=== PATIENT | female | born 1960 | race Caucasian/White ===

== ENCOUNTER 2017-01-11 12:22 | Emergency (ER) | payer OTHER ==
[2017-01-11 13:56] LABS: HEMOGLOBIN 11.7 gm/dl (12.3-15.3); RED BLOOD COUNT 3.85 M/UL (4.00-5.10); WHITE BLOOD COUNT 5.5 K/UL (4.5-11.0)
[2017-01-11 14:08] LABS: BUN/CREATININE RATIO 17 (0-10)
== END 2017-01-11 17:50 | disposition home or self-care (01) ==
LOC: ER1 12:22
PROVIDERS: Specialist/Technologist Athletic Trainer
DX: R42 Dizziness and giddiness (principal); I25.10 Atherosclerotic heart disease of native coronary artery without angina pectoris; Z79.82 Long term (current) use of aspirin; Z87.891 Personal history of nicotine dependence; Z98.61 Coronary angioplasty status
CPT/HCPCS: 36415; 70450; 80053; 85025; 93005; 99284; J0696; J7040

== ENCOUNTER 2020-08-17 17:21 | Emergency (ER) | payer OTHER ==
[~2020-08-17 17:21] MED LIST: BACTROBAN CREAM15 GM TOP; CLARITIN10 MG PO; CLINDAMYCIN HC300 MG PO; ECOTRIN81 MG PO; FLONASE 0.05% N16 GM; IBUPROFEN800 MG PO; KEFLEX CAP 500500 MG PO; MUCINEX DM ER1 EACH PO; MUCINEX600 MG PO; NORFLEX 100 MG100 MG PO; OMNICEF 300 MG300 MG PO; PREDNISONE10 MG PO; PROVENTIL HFA6.7 GM INH; VENTOLIN HFA 66.7 GM INH; Voltaren Gel 1% TOP; ZITHROMAX500 MG PO
[2020-08-17] MEDS ORDERED: PREDNISONE 20 M20 MG PO (22:52)
[2020-08-17] MEDS ORDERED: AZITHROMYCIN500 MG PO (22:52)
== END 2020-08-17 23:01 | disposition home or self-care (01) ==
LOC: ER1 17:21
DX: J44.1 Chronic obstructive pulmonary disease with (acute) exacerbation (principal); I25.10 Atherosclerotic heart disease of native coronary artery without angina pectoris; F17.200 Nicotine dependence, unspecified, uncomplicated; Z20.822 Contact with and (suspected) exposure to COVID-19
CPT/HCPCS: 71045; 87081; 87880; 99283; U0002

== ENCOUNTER 2021-08-03 17:59 | Emergency (ER) | payer OTHER ==
[~2021-08-03 17:59] MED LIST changes: +ASPIRIN325 MG PO; +AZITHROMYCIN500 MG PO; -ECOTRIN81 MG PO; +PREDNISONE 20 M20 MG PO
== END 2021-08-03 21:35 | disposition home or self-care (01) ==
LOC: ER1 17:59
DX: J06.9 Acute upper respiratory infection, unspecified (principal); I51.9 Heart disease, unspecified; Z20.822 Contact with and (suspected) exposure to COVID-19
CPT/HCPCS: 71045; 99283; U0002

== ENCOUNTER 2021-08-05 13:46 | Inpatient (IN) | payer OTHER ==
[~2021-08-05] VITALS: Ht 160 cm; Wt 55.6 kg
[2021-08-05 15:01] LABS: HEMOGLOBIN 13.5 gm/dl (12.3-15.3); RED BLOOD COUNT 4.3 M/UL (4.00-5.10); WHITE BLOOD COUNT 8.7 K/UL (4.5-11.0)
[2021-08-05 16:07] LABS: BUN/CREATININE RATIO 12 (0-10)
[2021-08-05] MEDS ORDERED: BENZONATATE100 MG PO (16:48)
[2021-08-05] MEDS ORDERED: CEPHALEXIN500 MG PO (16:49)
[2021-08-05] MEDS ORDERED: [UNRECOGNIZED DRUG - OTHER] TOP (16:50)
[2021-08-06 07:07] LABS: HEMOGLOBIN 12.4 gm/dl (12.3-15.3); RED BLOOD COUNT 4.02 M/UL (4.00-5.10); WHITE BLOOD COUNT 5.6 K/UL (4.5-11.0)
[2021-08-06 08:07] LABS: BUN/CREATININE RATIO 15 (0-10)
[2021-08-06] MEDS ORDERED: PROAIR HFA8.5 GM INH (17:18)
[2021-08-06] MEDS ORDERED: AUGMENTIN 875-1 EACH PO (17:18)
[2021-08-06] MEDS ORDERED: MEDROL DOSEPAK 24 MG PO (17:18)
== END 2021-08-06 19:10 | disposition home or self-care (01) | DRG 189 ==
LOC: ER1 13:46 → CDU 16:26 → 3 EAST 22:52
PROVIDERS: Physician Assistant; ADMIT Internal Medicine
DX: J96.01 Acute respiratory failure with hypoxia (principal); J44.1 Chronic obstructive pulmonary disease with (acute) exacerbation; J01.90 Acute sinusitis, unspecified; Z20.822 Contact with and (suspected) exposure to COVID-19; I25.10 Atherosclerotic heart disease of native coronary artery without angina pectoris; E78.5 Hyperlipidemia, unspecified; F17.210 Nicotine dependence, cigarettes, uncomplicated; K80.80 Other cholelithiasis without obstruction; J40 Bronchitis, not specified as acute or chronic; Z79.01 Long term (current) use of anticoagulants; Z79.82 Long term (current) use of aspirin; Z98.891 History of uterine scar from previous surgery; Z82.49 Family history of ischemic heart disease and other diseases of the circulatory system; Z80.1 Family history of malignant neoplasm of trachea, bronchus and lung
CPT/HCPCS: 0240U; 36415; 36600; 71045; 71275; 80048; 80053; 82550; 82553; 82803; 83874; 84484; 85025; 85379; 93005; 94640; 94664; 94760; 96374; 99285; J1650; J2930; Q9967